=== PATIENT | male | born 1975 | race Caucasian/White ===

== ENCOUNTER 2020-12-12 15:04 | Emergency (ER) | payer OTHER, BC ==
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
[2020-12-12 16:16] VITALS: BP 114/71; PULSE 64
--- NOTE | 2020-12-12 16:26 | CT ---
[id number] CT/CT Head WO IV EXAM: CT Head WO IV CLINICAL DATA: TRAUMA COMPARISON: No previous similar exam is available for comparison. FINDINGS: There is no mass or mass effect. There is no hemorrhage or hydrocephalus. There are no extra-axial fluid collections. There are no sites of abnormal attenuation. IMPRESSION: NO PLAIN CT EVIDENCE OF ACUTE INTRACRANIAL PROCESS. Delio Garza MD 12/12/20 [id number] Thank you for allowing us to participate in the care of your patient.
--- NOTE | 2020-12-12 16:27 | CT ---
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
--- NOTE | 2020-12-12 16:29 | CR ---
[id number] RAD/RAD Chest PA And Lateral EXAM: RAD Chest PA And Lateral CLINICAL DATA: TRAUMA COMPARISON: No previous similar exam is available. FINDINGS: The lungs are clear. The cardiomediastinal contour is normal. The regional bones and soft tissues are unremarkable. IMPRESSION: NO ACUTE PROCESS. Delio Garza MD 12/12/20 [id number] Thank you for allowing us to participate in the care of your patient.
--- NOTE | 2020-12-12 16:30 | CR ---
[id number] RAD/RAD Shoulder Left 2V Min EXAM: RAD Shoulder Left 2V Min CLINICAL DATA: TRAUMA COMPARISON: No previous similar exam is available. FINDINGS: No fracture or dislocation is seen. There is no radiopaque foreign body in the soft tissues. There is no air in the soft tissues. There is no cortical thickening or periosteal reaction either. IMPRESSION: NEGATIVE PLAIN FILM EXAM. Delio Garza MD 12/12/20 0061 Thank you for allowing us to participate in the care of your patient.
--- NOTE | 2020-12-12 16:31 | CR ---
[id number] RAD/RAD Cervical Spine 2-3V EXAM: RAD Cervical Spine 2-3V CLINICAL DATA: TRAUMA AND PAIN. COMPARISON: No previous similar exam is available. 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
[2020-12-12] MEDS ORDERED: traMADol 50 MG Tab PO ONE (17:06)
[2020-12-12] MEDS ORDERED: Cyclobenzaprine 10 MG Tab PO ONE (17:06)
[2020-12-12] MEDS ORDERED: Ibuprofen 600 MG Tab PO ONE (17:06)
== END 2020-12-12 17:50 | disposition home or self-care (01) ==
LOC: KA.ED 15:04
DX: S12.500A Unspecified displaced fracture of sixth cervical vertebra, initial encounter for closed fracture (principal); Z88.0 Allergy status to penicillin; V49.10XA Passenger injured in collision with unspecified motor vehicles in nontraffic accident, initial encounter
CPT/HCPCS: 70450; 71046; 72040; 72125; 73030-LT; 99283; 99284-25; A9270-GY